=== PATIENT | female | born 1980 ===

== ENCOUNTER 2017-03-09 14:52 | Emergency (ER) | payer SELFPAY ==
[2017-03-09 15:00] VITALS: RESP 18
[2017-03-09 15:21] LABS: RBC URINE < 1 /hpf (0-3); URINE BILIRUBIN NEGATIVE (NEGATIVE); URINE BLOOD NEGATIVE (NEGATIVE); URINE COLOR Yellow (YELLOW); URINE GLUCOSE (UA) NORMAL (Normal); URINE KETONE NEGATIVE (NEGATIVE); URINE LEUKOCYTE ESTERASE NEG Leu/uL (Negative); URINE PROTEIN NEGATIVE (NEGATIVE); URINE UROBILINOGEN NORMAL mg/dL (0.2-1.0); WBC URINE < 1 /hpf (0-5)
[2017-03-09 15:46] LABS: BASO # 0.1 K/uL (0.0-0.2); BASO % 0.6 % (0.0-2.0); EOS # 0.2 K/uL (0.0-0.7); EOS % 2.3 % (0.0-4.0); HEMATOCRIT 26.8 % (34.0-47.0); LYMPH # 3.1 K/uL (1.0-4.3); LYMPH % 31.3 % (20.0-40.0); MEAN CELL VOLUME 45.7 fL (81.0-99.0); MEAN CORPUSCULAR HGB CONC 26.2 g/dL (33.0-37.0); MEAN PLATELET VOLUME 9.4 fL (7.2-11.7); MONO # 0.7 K/uL (0.0-0.8); MONO % 6.8 % (0.0-10.0); RED CELL DISTRIBUTION WIDTH 21.3 % (11.5-14.5); WHITE BLOOD COUNT 9.9 K/uL (4.8-10.8)
[2017-03-09 15:50] LABS: CHLORIDE 104 mmol/L (98-107); POTASSIUM 3.7 mmol/L (3.6-5.2); SODIUM 141 mmol/L (132-148)
[2017-03-09 15:52] LABS: BILIRUBIN,TOTAL 0.6 mg/dL (0.2-1.3); GFR AFRICAN-AMERICAN > 60
[2017-03-09 15:53] LABS: ALB/GLOB RATIO 1.3 (1.0-2.1); ALKALINE PHOSPHATASE 100 U/L (38-126); ALT/SGPT 98 U/L (9-52); AST/SGOT 61 U/L (14-36); BLOOD UREA NITROGEN 11 mg/dL (7-17); CARBON DIOXIDE 21 mmol/L (22-30); GLUCOSE,RANDOM 156 mg/dL (65-105); TOTAL PROTEIN 7.9 g/dL (6.3-8.3)
[2017-03-09 15:54] LABS: CALCIUM 9.1 mg/dl (8.6-10.4)
[2017-03-09 15:57] LABS: IRON 37 ug/dL (37-170)
--- NOTE | 2017-03-09 16:43 | C.PDOC ---
History Of Present Illness A 37 year old female was sent from [facility] due to anemia that occurred today. Patient notes she had blood labs done and was found to have hemoglobin at 7 and was told to go to the hospital. Patient reports heavy periods for a while now and is feeling fatigued lately. Patient reports no bleeding in the ED and denies rectal bleeding, stool color change, fever, chills , N/V/D, pain, or any other complaints. Time Seen by Provider: 03/09/17 15:11 Chief Complaint (Nursing): Abnormal Labs History Per: Patient History/Exam Limitations: no limitations Onset/Duration Of Symptoms: Hrs Current Symptoms Are (Timing): Still Present Severity: Mild Additional History Per: Patient Past Medical History Reviewed: Historical Data, Nursing Documentation, Vital Signs Vital Signs: Last Vital Signs Temp 98.7 F 03/09/17 18:38 Pulse 86 03/09/17 18:38 Resp 18 03/09/17 18:38 BP 121/74 03/09/17 18:38 Pulse Ox 100 03/09/17 18:38 - Medical History PMH: Anemia Family History: States: Unknown Family Hx - Social History Hx Alcohol Use: No Hx Substance Use: No - Immunization History Hx Tetanus Toxoid Vaccination: No Hx Influenza Vaccination: No Review Of Systems Except As Marked, All Systems Reviewed And Found Negative. Constitutional: Positive for: Other (Fatigue). Negative for: Fever, Chills Gastrointestinal: Negative for: Nausea, Vomiting, Diarrhea, Other (Rectal bleeding. Stool color change) Physical Exam - Physical Exam Appears: Non-toxic, No Acute Distress Skin: Warm, Dry Head: Atraumatic, Normacephalic Eye(s): bilateral: Normal Inspection Cardiovascular: Rhythm Regular, No Murmur Respiratory: Normal Breath Sounds, No Rales, No Rhonchi, No Wheezing Gastrointestinal/Abdominal: Soft, No Tenderness Neurological/Psych: Oriented x3, Normal Speech, Normal Cognition ED Course And Treatment - Laboratory Results Result Diagrams: 03/09/17 15:33 03/09/17 15:33 O2 Sat by Pulse Oximetry: 99 (Room air) Pulse Ox Interpretation: Normal Medical Decision Making Medical Decision Making: Plans: CBC Pt hgb is stable at 7 (today and few days ago) Pt has min symptoms ie fatigue, current recommendation is to minimize transfusions I discussed transfusion vs IV iron Pt agrees with plan for IV iron then PO Post infusion dc home with mvi and iron Disposition Counseled Patient/Family Regarding: Diagnosis, Need For Followup - Disposition Referrals: [facility] [Outside] Disposition: HOME/ ROUTINE Disposition Time: 18:02 Condition: GOOD Prescriptions: Ferrous Gluconate [Iron] 1 tab PO BID #60 tablet Multivitamin [Multiple Vitamins] 1 tab PO DAILY #30 tablet Instructions: Iron Supplements (By mouth), Iron Deficiency Anemia (ED) - Clinical Impression Clinical Impression: Microcytic hypochromic anemia - Scribe Statement The provider has reviewed the documentation as recorded by the Scribe Harman cr All medical record entries made by the Scribe were at my direction and personally dictated by me. I have reviewed the chart and agree that the record accurately reflects my personal performance of the history, physical exam, medical decision making, and the department course for this patient. I have also personally directed, reviewed, and agree with the discharge instructions and disposition.
[2017-03-09] MEDS ORDERED: Ferric Sodium Gluconat Complex 62.5 mg/5 ml Vial IVPB STA (16:57)
[2017-03-09 18:39] VITALS: BP 121/74; PULSE 86; TEMP 98.7
[2017-03-14 16:01] VITALS: O2SAT 99
== END 2017-03-09 18:39 | disposition home or self-care (01) ==
LOC: C.ER 14:52
DX: D50.8 Other iron deficiency anemias (principal)
CPT/HCPCS: 80053; 81001; 83540; 83550; 84703; 85025; 86850; 86900; 96365; 99283; J2916

== ENCOUNTER 2017-03-31 21:42 | Emergency (ER) | payer SELFPAY ==
[2017-03-31 22:32] VITALS: RESP 18
[2017-03-31] MEDS ORDERED: Sodium Chloride 0.9% 1,000 ML IV ONE (23:19)
--- NOTE | 2017-03-31 23:19 | C.PDOC ---
History Of Present Illness <Laith Yates - Last Filed: 04/01/17 00:45> <Luma Eduardo - Last Filed: 04/01/17 17:38> Patient is a 37 year old female with a PMHx of anemia who presents to the ER with a complaint of a fever, sore throat and vomiting that began today. Patient noted that she is baseline anemic and is on iron therapy. Patient denies sick contact, chest pain, or abdominal pain. (Laith Yates) History Per: Patient History/Exam Limitations: no limitations Onset/Duration Of Symptoms: Hrs Current Symptoms Are (Timing): Still Present Location Of Pain: None Sick Contacts (Context): None Associated Symptoms: Fever, Vomiting, Other (Sore throat) Recent travel outside of the [place]: No <Laith Yates - Last Filed: 04/01/17 00:45> <Luma Eduardo - Last Filed: 04/01/17 17:38> Time Seen by Provider: 03/31/17 23:15 Chief Complaint (Nursing): Fever Past Medical History Reviewed: Historical Data, Nursing Documentation, Vital Signs - Medical History PMH: Anemia Surgical History: No Surg Hx Family History: States: Unknown Family Hx - Social History Hx Alcohol Use: No Hx Substance Use: No - Immunization History Hx Tetanus Toxoid Vaccination: No Hx Influenza Vaccination: No <Laith Yates - Last Filed: 04/01/17 00:45> Review Of Systems Except As Marked, All Systems Reviewed And Found Negative. Constitutional: Positive for: Fever ENT: Positive for: Throat Pain Cardiovascular: Negative for: Chest Pain Gastrointestinal: Positive for: Vomiting. Negative for: Abdominal Pain <Laith Yates - Last Filed: 04/01/17 00:45> Physical Exam - Physical Exam Appears: Well, Non-toxic Skin: Normal Color, Warm, Dry Head: Atraumatic, Normacephalic Nose: Normal, No Discharge Oral Mucosa: Moist Tongue: Normal Appearing, No Erythema Throat: Erythema (Pharyngeal), Exudate (Pharyngeal) Neck: Normal, Supple Chest: Symmetrical, No Tenderness Cardiovascular: Rhythm Regular, No Murmur Respiratory: Normal Breath Sounds, No Rales, No Rhonchi, No Wheezing Gastrointestinal/Abdominal: Soft, No Tenderness Neurological/Psych: Oriented x3, Normal Speech, Normal Cognition <Laith Yatse - Last Filed: 04/01/17 00:45> ED Course And Treatment - Laboratory Results Result Diagrams: 03/31/17 23:41 03/31/17 23:41 - Radiology CXR: Interpreted by Me, Viewed By Me CXR Interpretation: Yes: No Acute Disease <Laith Yates - Last Filed: 04/01/17 00:45> - Laboratory Results Result Diagrams: 03/31/17 23:41 03/31/17 23:41 <Luma Eduardo - Last Filed: 04/01/17 17:38> Medical Decision Making <Laith Yates - Last Filed: 04/01/17 00:45> <Luma Eduardo - Last Filed: 04/01/17 17:38> Medical Decision Making: r/o strep, flu, pna - will check labs fluids, reassess Plan: * Tylenol PO * Amoxicillin PO * Zofran IVP, * Protonix IVP * IV fluids * 1245: noted h/h. improving from previous, as pt on iron. does not wish to stay in hospital for possible transfuion. noted leukocytosis, strep pos. not tachy, fever resolved. cxr neg as read by me. pt asking for discharge. well appearing, on phone, in nad. (Laith Yates) Disposition - Disposition Disposition Time: 00:45 <Laith Yates - Last Filed: 04/01/17 00:45> <Luma Eduardo - Last Filed: 04/01/17 17:38> - Disposition Referrals: Clinic,Med Surg [Primary Care Provider] - Disposition: HOME/ ROUTINE Condition: STABLE Additional Instructions: please follow up with your doctor/clinic. return to er with worsening symptoms or concerns. Prescriptions: Amoxicillin [Amoxil 500 mg Cap] 500 mg PO TID #21 cap Instructions: Strep Throat (ED) Print Language: BELIZEAN - Clinical Impression Clinical Impression: Strep pharyngitis - Scribe Statement The provider has reviewed the documentation as recorded by the Scribe <Laith Yates - Last Filed: 04/01/17 00:45> <Luma Eduardo - Last Filed: 04/01/17 17:38> - Scribe Statement Chris Grace All medical record entries made by the Scribe were at my direction and personally dictated by me. I have reviewed the chart and agree that the record accurately reflects my personal performance of the history, physical exam, medical decision making, and the department course for this patient. I have also personally directed, reviewed, and agree with the discharge instructions and disposition. (Laith Yates) Addendum <Laith Yates - Last Filed: 04/01/17 00:45> <Luma Eduardo - Last Filed: 04/01/17 17:38> Addendum: 04/01/17 17:37 call placed to patient at [phone] to f/u on her condition; no answer, not able to leave voice message. (Luma Eduardo)
[2017-03-31] MEDS ORDERED: Sodium Chloride 0.9% 1,000 ML ONE (23:25)
[2017-03-31 23:44] LABS: BASO # 0.1 K/uL (0.0-0.2); EOS # 0.1 K/uL (0.0-0.7); EOS % 0.4 % (0.0-4.0); MONO # 1.4 K/uL (0.0-0.8); NRBC % 0.1 % (0.0-2.0)
[2017-03-31 23:49] LABS: RBC URINE 10 /hpf (0-3); TRANSITIONAL EPITHIAL < 1 /hpf (0-3); URINE BACTERIA OCC (<OCC); URINE BILIRUBIN NEGATIVE (NEGATIVE); URINE BLOOD 2+ (NEGATIVE); URINE COLOR Yellow (YELLOW); URINE GLUCOSE (UA) NORMAL (Normal); URINE KETONE NEGATIVE (NEGATIVE); URINE LEUKOCYTE ESTERASE 1+ Leu/uL (Negative); URINE PROTEIN 1+ mg/dL (NEGATIVE); URINE UROBILINOGEN NORMAL mg/dL (0.2-1.0); WBC URINE 11 /hpf (0-5)
[2017-03-31 23:50] LABS: MEAN CELL VOLUME 50.2 fL (81.0-99.0)
[2017-03-31 23:53] LABS: CHLORIDE 100 mmol/L (98-107); SODIUM 135 mmol/L (132-148)
[2017-03-31 23:54] LABS: INR 1.2; POTASSIUM 3.8 mmol/L (3.6-5.2)
[2017-03-31 23:56] LABS: ALB/GLOB RATIO 1.4 (1.0-2.1); ALKALINE PHOSPHATASE 99 U/L (38-126); ALT/SGPT 74 U/L (9-52); AST/SGOT 32 U/L (14-36); BILIRUBIN,TOTAL 0.7 mg/dL (0.2-1.3); BLOOD UREA NITROGEN 9 mg/dL (7-17); CARBON DIOXIDE 21 mmol/L (22-30); GFR AFRICAN-AMERICAN > 60; GLUCOSE,RANDOM 156 mg/dL (65-105)
[2017-04-01 00:08] LABS: BASO % 0.5 % (0.0-2.0); LYMPH # 1.2 K/uL (1.0-4.3); LYMPH % 6.6 % (20.0-40.0); MEAN CORPUSCULAR HEMOGLOBIN 13.8 pg (27.0-31.0); MEAN CORPUSCULAR HGB CONC 27.4 g/dL (33.0-37.0); MEAN PLATELET VOLUME 9.6 fL (7.2-11.7); MONO % 7.4 % (0.0-10.0); PLATELET COUNT 203 K/uL (130-400); RED CELL DISTRIBUTION WIDTH 28.8 % (11.5-14.5); WHITE BLOOD COUNT 18.7 K/uL (4.8-10.8)
[2017-04-01 00:11] LABS: HEMATOCRIT 29.5 % (34.0-47.0)
[2017-04-01 00:16] VITALS: BP 116/72; PULSE 82; TEMP 99; O2SAT 99
[2017-04-01 03:31] LABS: BASOPHIL 1 % (0-2); NEUTROPHIL 93 % (50-75); TOTAL CELLS COUNTED 100
--- NOTE | 2017-04-01 08:55 | RAD ---
PROCEDURE: CHEST RADIOGRAPH, 1 VIEW HISTORY: Abdominal pain COMPARISON: None available. FINDINGS: LUNGS: Mild venous congestion. PLEURA: No pneumothorax or pleural fluid seen. CARDIOVASCULAR: Normal. OSSEOUS STRUCTURES: No significant abnormalities. VISUALIZED UPPER ABDOMEN: Normal. OTHER FINDINGS: None. IMPRESSION: Mild venous congestion.
== END 2017-04-01 00:30 | disposition home or self-care (01) ==
LOC: C.ER 21:42 → SUPCPDRO 21:42 → C.ER 04-01 00:30
DX: J02.0 Streptococcal pharyngitis (principal); B95.0 Streptococcus, group A, as the cause of diseases classified elsewhere
CPT/HCPCS: 71010; 80053; 81001; 83690; 84703; 85025; 85610; 85730; 87430; 87804; 96361; 96374; 96375; 99285; C9113; J2405; J7040

== ENCOUNTER 2019-03-12 20:06 | Observation (INO) | payer SELFPAY ==
--- NOTE | 2019-03-12 21:25 | C.PDOC ---
History Of Present Illness 39yo old F with PMH of iron deficiency anemia was sent in by [facility] when her labs showed her Hgb was 7 and she's on day 19 of a heavy period. This happened two years ago, but she did not require a transfusion at that time. She was supplemented with iron at that time. She has started to feel, dizzy, weak, and cold as her period has progressed. She states that it is heavier than usual, needing to change completely soaked pads about once every hour and notices clotting of various sizes about half the time she changes pads. Her normal periods are heavy without clots and last about 1 week. Today, she supplements with tampons to ensure she can make it to the restroom before leaking. Denies chest pain, palpitations, headaches, numbness, tingling. After the clinic contacted her, she started taking Folic Acid and Iron supplements today. <Teagan Dial - Last Filed: 03/12/19 21:55> History Per: Patient Onset/Duration Of Symptoms: Days <Teagan Dial - Last Filed: 03/12/19 21:55> <Gumaro Noland DO - Last Filed: 03/13/19 00:26> Time Seen by Provider: 03/12/19 21:06 Chief Complaint (Nursing): Abnormal Labs Past Medical History Reviewed: Historical Data, Nursing Documentation, Vital Signs Vital Signs: Last Vital Signs Temp 98 F 03/12/19 20:37 Pulse 87 03/12/19 20:37 Resp 20 03/12/19 20:37 BP 139/89 03/12/19 20:37 Pulse Ox 100 03/12/19 20:37 Primary Care Provider: Non [facility] Provider, - Medical History PMH: Anemia Family History: States: Unknown Family Hx - Social History Hx Tobacco Use: No Hx Alcohol Use: No Hx Substance Use: No - Immunization History Hx Tetanus Toxoid Vaccination: No Hx Influenza Vaccination: No <Teagan Dial - Last Filed: 03/12/19 21:55> Vital Signs: Last Vital Signs Temp 98 F 03/12/19 20:37 Pulse 87 03/12/19 20:37 Resp 20 03/12/19 20:37 BP 139/89 03/12/19 20:37 Pulse Ox 100 03/12/19 21:57 <Gumaro Noland DO - Last Filed: 03/13/19 00:26> Review Of Systems Constitutional: Positive for: Weakness. Negative for: Fever, Chills Cardiovascular: Positive for: Light Headedness. Negative for: Chest Pain, Palpitations, Edema Respiratory: Negative for: Cough, Shortness of Breath, Wheezing Gastrointestinal: Positive for: Nausea. Negative for: Vomiting, Abdominal Pain, Diarrhea, Constipation Genitourinary: Negative for: Dysuria, Frequency, Incontinence Skin: Negative for: Rash Neurological: Positive for: Weakness, Dizziness. Negative for: Numbness, Confusion, Seizures, Altered Mental Status <Teagan Dial - Last Filed: 03/12/19 21:55> Physical Exam - Physical Exam Appears: Well, No Acute Distress, Other (tearful) Skin: Dry, Pale, Other (cool to touch) Head: Atraumatic, Normacephalic Eye(s): bilateral: PERRL, EOMI, Conjunctiva Pale Oral Mucosa: Dry Cardiovascular: Rhythm Regular, No Edema Respiratory: Normal Breath Sounds, No Rales, No Rhonchi Gastrointestinal/Abdominal: Normal Exam, Bowel Sounds, Soft, No Tenderness, Distention (obese) Back: No CVA Tenderness Pelvic: Vaginal Bleeding, Vaginal Discharge, No Cervical Motion Tenderness Extremity: No Pedal Edema, No Calf Tenderness, Capillary Refill (3-4 sec) Pulses: Left Radial: Normal, Right Radial: Normal, Left Dorsalis Pedis: Normal, Right Dorsalis Pedis: Normal DTR: Knee (R): 2+, Knee (L): 2+ Neurological/Psych: Oriented x3, Normal Speech, Normal Cognition, Normal Cranial Nerves <Teagan Dial - Last Filed: 03/12/19 21:55> ED Course And Treatment - Laboratory Results Result Diagrams: 03/12/19 21:27 03/12/19 21:27 O2 Sat by Pulse Oximetry: 100 <Teagan Dial - Last Filed: 03/12/19 21:55> - Laboratory Results Result Diagrams: 03/12/19 21:27 03/12/19 21:27 Lab Results: PT 11.7 SECONDS (9.7-12.2) 03/12/19 21:27 INR 1.1 03/12/19 21:27 APTT 25.0 SECONDS (21-34) 03/12/19 21:27 Total Bilirubin 0.5 mg/dL (0.2-1.3) 03/12/19 21:27 AST 31 U/L (14-36) 03/12/19 21:27 ALT 23 U/L (9-52) 03/12/19 21:27 Alkaline Phosphatase 110 U/L (38-126) 03/12/19 21: Total Protein 8.2 g/dL (6.3-8.3) 03/12/19 21: Albumin 4.9 g/dL (3.5-5.0) 03/12/19 21: Globulin 3.4 gm/dL (2.2-3.9) 03/12/19 21: Albumin/Globulin Ratio 1.5 (1.0-2.1) 03/12/19 21:27 Urine Color Red (YELLOW) 03/12/19 22:17 Urine Clarity Hazy (Clear) 03/12/19 22:17 Urine pH 5.0 (5.0-8.0) 03/12/19 22:17 Ur Specific [place] 1.003 (1.003-1.030) 03/12/19 22:17 Urine Protein 1+ mg/dL (NEGATIVE) H 03/12/19 22:17 Urine Glucose (UA) Normal mg/dL (Normal) 03/12/19 22:17 Urine Ketones Negative mg/dL (NEGATIVE) 03/12/19 22:17 Urine Blood 3+ (NEGATIVE) H 03/12/19 22:17 Urine Nitrate Negative (NEGATIVE) 03/12/19 22:17 Urine Bilirubin Negative (NEGATIVE) 03/12/19 22:17 Urine Urobilinogen Normal mg/dL (0.2-1.0) 03/12/19 22:17 Ur Leukocyte Esterase Neg Davian/uL (Negative) 03/12/19 22:17 Urine WBC (Auto) 1 /hpf (0-5) 03/12/19 22:17 Urine RBC (Auto) 29 /hpf (0-3) H 03/12/19 22:17 Ur Squamous Epith Cells 6 /hpf (0-5) H 03/12/19 22:17 Urine Bacteria Rare (<OCC) 03/12/19 22:17 Urine HCG, Qual Negative (NEGATIVE) 03/12/19 22:17 Beta HCG, Quant < 2.39 mIU/ML 03/12/19 21:27 Urine HCG, Qual Negative (NEGATIVE) 03/12/19 22:17 <Gumaro Noland DO - Last Filed: 03/13/19 00:26> Medical Decision Making Medical Decision Making: - labs - bHCG, quantitative as pt unlikely to provide urine - UA, Upreg - type and cross. consent obtained for transfusion d/w Dr. Noland. will sign over care to him at this time. <Teagan Dial - Last Filed: 03/12/19 21:55> Medical Decision Making: Spoke with Dr. Marc SANTIAGO pellet preparation operator regarding patient, requests patient to be admitted to Medical Service and she will follow up as consult. Contacted Dr. Goff Hospitalist pellet preparation operator, patient to be admitted to his service. <Gumaro Noland DO - Last Filed: 03/13/19 00:26> Disposition - Disposition Disposition Time: 21:56 <Teagan Dial - Last Filed: 03/12/19 21:55> <Gumaro Noland DO - Last Filed: 03/13/19 00:26> - Disposition Condition: FAIR - Clinical Impression Clinical Impression: Acute anemia, Menorrhagia - PA / ANIMAL DAYCARE PROVIDER / Resident Statement VITALY has reviewed & agrees with the documentation as recorded. VITALY has examined the patient and agrees with the treatment plan. <Teagan Dial - Last Filed: 03/12/19 21:55>
[2019-03-12 21:37] LABS: BASO # 0.1 K/uL (0.0-0.2); BASO % 0.6 % (0.0-2.0); EOS # 0.2 K/uL (0.0-0.7); EOS % 1.8 % (0.0-4.0); LYMPH # 3.9 K/uL (1.0-4.3); LYMPH % 29.1 % (20.0-40.0); MEAN CORPUSCULAR HEMOGLOBIN 14.2 pg (27.0-31.0); MEAN CORPUSCULAR HGB CONC 28.4 g/dL (33.0-37.0); MEAN PLATELET VOLUME 9.1 fL (7.2-11.7); MONO # 0.8 K/uL (0.0-0.8); MONO % 6.3 % (0.0-10.0); NEUT # 8.3 K/uL (1.8-7.0); NEUT % 62.2 % (50.0-75.0); NRBC % 0.3 % (0.0-2.0); RBC 5.3 Mil/uL (3.80-5.20); RED CELL DISTRIBUTION WIDTH 19.6 % (11.5-14.5); WHITE BLOOD COUNT 13.4 K/uL (4.8-10.8)
[2019-03-12 21:38] LABS: HEMOGLOBIN 7.6 g/dL (11.0-16.0); MEAN CELL VOLUME 50.2 fL (81.0-99.0)
[2019-03-12 21:41] LABS: INR 1.1; PROTHROMBIN TIME 11.7 SECONDS (9.7-12.2)
[2019-03-12 21:45] LABS: ALB/GLOB RATIO 1.5 (1.0-2.1); ALBUMIN 4.9 g/dL (3.5-5.0); ALT/SGPT 23 U/L (9-52); AST/SGOT 31 U/L (14-36); BLOOD UREA NITROGEN 9 mg/dL (7-17); CALCIUM 9.3 mg/dl (8.6-10.4); GFR NON-AFRICAN AMERICAN > 60
[2019-03-12 22:31] LABS: SQUAMOUS EPITHIAL 6 /hpf (0-5); URINE BACTERIA RARE (<OCC); URINE BILIRUBIN NEGATIVE (NEGATIVE); URINE BLOOD 3+ (NEGATIVE); URINE CLARITY Hazy (Clear); URINE COLOR Red (YELLOW); URINE GLUCOSE (UA) NORMAL (Normal); URINE LEUKOCYTE ESTERASE NEG Leu/uL (Negative); URINE PROTEIN 1+ mg/dL (NEGATIVE); URINE UROBILINOGEN NORMAL mg/dL (0.2-1.0)
[2019-03-12 22:33] LABS: HCG,QUALITATIVE URINE NEGATIVE (NEGATIVE)
--- NOTE | 2019-03-12 23:03 | CP.PCM.HP ---
"<Gumaro Noland DO - Last Filed: 03/13/19 00:07> Meds Allergies/Adverse Reactions: Allergies Allergy/AdvReac Type Severity Reaction Status Date / Time No Known Allergies Allergy Verified 03/12/19 20:46 Results - Vital Signs Recent Vital Signs: Last Vital Signs Temp 98 F 03/12/19 20:37 Pulse 87 03/12/19 20:37 Resp 20 03/12/19 20:37 BP 139/89 03/12/19 20:37 Pulse Ox 100 03/12/19 21:57 - Labs Result Diagrams: 03/12/19 21:27 03/12/19 21:27 Labs: Laboratory Results - last 24 hr 03/12/19 03/12/19 03/12/19 21:27 21:27 21:27 WBC 13.4 H RBC 5.30 H Hgb 7.6 L Hct 25.8 L MCV 50.2 L MCH 14.2 L MCHC 28.4 L RDW 19.6 H Plt Count 279 MPV 9.1 Neut % (Auto) 62.2 Lymph % (Auto) 29.1 [place] % (Auto) 6.3 Eos % (Auto) 1.8 Baso % (Auto) 0.6 Neut # (Auto) 8.3 H Lymph # (Auto) 3.9 [place] # (Auto) 0.8 Eos # (Auto) 0.2 Baso # (Auto) 0.1 PT 11.7 INR 1.1 APTT 25.0 Sodium 141 Potassium 3.7 Chloride 102 Carbon Dioxide 22 Anion Gap 20 BUN 9 Creatinine 0.7 Est GFR ( Amer) > 60 Est GFR (Non-Af Amer) > 60 Random Glucose 111 H D Calcium 9.3 Total Bilirubin 0.5 AST 31 ALT 23 Alkaline Phosphatase 110 Total Protein 8.2 Albumin 4.9 Globulin 3.4 Albumin/Globulin Ratio 1.5 Beta HCG, Quant Urine Color Urine Clarity Urine pH Ur Specific [place] Urine Protein Urine Glucose (UA) Urine Ketones Urine Blood Urine Nitrate Urine Bilirubin Urine Urobilinogen Ur Leukocyte Esterase Urine WBC (Auto) Urine RBC (Auto) Ur Squamous Epith Cells Urine Bacteria Urine HCG, Qual 03/12/19 03/12/19 21:27 22:17 WBC RBC Hgb Hct MCV MCH MCHC RDW Plt Count MPV Neut % (Auto) Lymph % (Auto) [place] % (Auto) Eos % (Auto) Baso % (Auto) Neut # (Auto) Lymph # (Auto) [place] # (Auto) Eos # (Auto) Baso # (Auto) PT INR APTT Sodium Potassium Chloride Carbon Dioxide Anion Gap BUN Creatinine Est GFR ( Amer) Est GFR (Non-Af Amer) Random Glucose Calcium Total Bilirubin AST ALT Alkaline Phosphatase Total Protein Albumin Globulin Albumin/Globulin Ratio Beta HCG, Quant < 2.39 Urine Color Red Urine Clarity Hazy Urine pH 5.0 Ur Specific [place] 1.003 Urine Protein 1+ H Urine Glucose (UA) Normal Urine Ketones Negative Urine Blood 3+ H Urine Nitrate Negative Urine Bilirubin Negative Urine Urobilinogen Normal Ur Leukocyte Esterase Neg Urine WBC (Auto) 1 Urine RBC (Auto) 29 H Ur Squamous Epith Cells 6 H Urine Bacteria Rare Urine HCG, Qual Negative <Abel Jones - Last Filed: 03/13/19 05:59> History of Present Illness - History of Present Illness History of Present Illness: 39yo old female with a past medical history of iron deficiency anemia and thalassemia minor was sent in by [facility] when her labs showed her Hgb was 7 and she's on day 19 of a heavy period. She reports bright red blood associated with maroon clots that come and go throughout the day. Patient states she has to change her pads every hour on the hour throughout the day. Similar symptoms occurred two years ago, however no transfusion was done at that time and started on PO iron instead. She reports feeling dizzy and weak throughout the day. Her baseline periods she states are usually heavy as well with clots and last about one week in length. Her normal periods are heavy wit hout clots and last about 1 week. Today was her first day of taking PO Iron and Folic acid supplementation at the recommendation of her Physician at the clinic. Patient denies any chest pain, palpitations, headaches, numbness, tingling, syncopal episodes, changes in vision, or any other complaints. PMD: Cant recall name, but located at [facility] Medical history: iron def anemia, pre-diabetes, thalassemia minor Allergies: Denies Medications: Ferrous Sulfate 325mg PO DAILY Surgeries: 2 C-sections Social History: Lives in [place] with and children. Currently unemployed. Denies alcohol or tobacco abuse. Denies illicit drug use. Present on Admission - Present on Admission Any Indicators Present on Admission: No Review of Systems - Constitutional Constitutional: Fatigue. absent: Chills, Daytime Sleepiness, Excessive Sweating, Lethargy, Malaise, Sleep Apnea - EENT Eyes: absent: Decreased Night Vision, Loss of Peripheral Vision, Pain, Photophobia, Tunnel Vision Ears: absent: Ear Pain Nose/Mouth/Throat: absent: Nasal Discharge, Nasal Obstruction, Mouth Pain - Cardiovascular Cardiovascular: Lightheadedness. absent: Chest Pain, Chest Pain at Rest, Orthopnea, Palpitations, Syncope - Respiratory Respiratory: Cough. absent: Hemoptysis, Dyspnea on Exertion, Excessive Mucous Production - Gastrointestinal Gastrointestinal: Constipation. absent: Bloating, Diarrhea, Dyspepsia, Hematochezia - Musculoskeletal Musculoskeletal: absent: Atrophy, Back Pain, Myalgias, Neck Pain - Integumentary Integumentary: absent: Bleeding Lesions, Furuncle, Skin Pain, Skin Ulcer - Neurological Neurological: Weakness. absent: Dizziness, Vertigo - Psychiatric Psychiatric: absent: Memory Loss, Mood Swings, Panic Attacks - Hematologic/Lymphatic Hematologic: absent: Easy Bleeding, Easy Bruising, Lymphadenopathy Past Patient History - Infectious Disease Hx of Infectious Diseases: None - Past Social History Smoking Status: Never Smoked - HEMATOLOGICAL/ONCOLOGICAL Hx Anemia: Yes - PSYCHIATRIC Hx Substance Use: No - SURGICAL HISTORY Hx Section: Yes (X2) - ANESTHESIA Hx Anesthesia: Yes Physical Exam - Head Exam Head Exam: ATRAUMATIC, NORMAL INSPECTION, NORMOCEPHALIC - Eye Exam Eye Exam: EOMI, Normal appearance, PERRL Pupil Exam: NORMAL ACCOMODATION, PERRL - ENT Exam ENT Exam: Mucous Membranes Moist, Normal Exam - Neck Exam Neck exam: Positive for: Normal Inspection. Negative for: Tenderness - Respiratory Exam Respiratory Exam: Clear to Auscultation Bilateral, NORMAL BREATHING PATTERN - Cardiovascular Exam Cardiovascular Exam: REGULAR RHYTHM, +S1, +S2. 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 - Neurological Exam Neurological exam: Alert, CN II-XII Intact, Oriented x3 - Psychiatric Exam Psychiatric exam: Normal Affect, Normal Mood - Skin Skin Exam: Dry, Intact, Normal Color Results - Vital Signs Recent Vital Signs: Last Vital Signs Temp 98 F 03/12/19 20:37 Pulse 87 03/12/19 20:37 Resp 20 03/12/19 20:37 BP 139/89 03/12/19 20:37 Pulse Ox 100 03/12/19 21:57 - Labs Result Diagrams: 03/12/19 21:27 03/12/19 21:27 Labs: Laboratory Results - last 24 hr 03/12/19 03/12/19 03/12/19 21:27 21:27 21:27 WBC 13.4 H RBC 5.30 H Hgb 7.6 L Hct 25.8 L MCV 50.2 L MCH 14.2 L MCHC 28.4 L RDW 19.6 H Plt Count 279 MPV 9.1 Neut % (Auto) 62.2 Lymph % (Auto) 29.1 [place] % (Auto) 6.3 Eos % (Auto) 1.8 Baso % (Auto) 0.6 Neut # (Auto) 8.3 H Lymph # (Auto) 3.9 [place] # (Auto) 0.8 Eos # (Auto) 0.2 Baso # (Auto) 0.1 PT 11.7 INR 1.1 APTT 25.0 Sodium 141 Potassium 3.7 Chloride 102 Carbon Dioxide 22 Anion Gap 20 BUN 9 Creatinine 0.7 Est GFR ( Amer) > 60 Est GFR (Non-Af Amer) > 60 Random Glucose 111 H D Calcium 9.3 Total Bilirubin 0.5 AST 31 ALT 23 Alkaline Phosphatase 110 Total Protein 8.2 Albumin 4.9 Globulin 3.4 Albumin/Globulin Ratio 1.5 Beta HCG, Quant Urine Color Urine Clarity Urine pH Ur Specific [place] Urine Protein Urine Glucose (UA) Urine Ketones Urine Blood Urine Nitrate Urine Bilirubin Urine Urobilinogen Ur Leukocyte Esterase Urine WBC (Auto) Urine RBC (Auto) Ur Squamous Epith Cells Urine Bacteria Urine HCG, Qual 03/12/19 03/12/19 21:27 22:17 WBC RBC Hgb Hct MCV MCH MCHC RDW Plt Count MPV Neut % (Auto) Lymph % (Auto) [place] % (Auto) Eos % (Auto) Baso % (Auto) Neut # (Auto) Lymph # (Auto) [place] # (Auto) Eos # (Auto) Baso # (Auto) PT INR APTT Sodium Potassium Chloride Carbon Dioxide Anion Gap BUN Creatinine Est GFR ( Amer) Est GFR (Non-Af Amer) Random Glucose Calcium Total Bilirubin AST ALT Alkaline Phosphatase Total Protein Albumin Globulin Albumin/Globulin Ratio Beta HCG, Quant < 2.39 Urine Color Red Urine Clarity Hazy Urine pH 5.0 Ur Specific [place] 1.003 Urine Protein 1+ H Urine Glucose (UA) Normal Urine Ketones Negative Urine Blood 3+ H Urine Nitrate Negative Urine Bilirubin Negative Urine Urobilinogen Normal Ur Leukocyte Esterase Neg Urine WBC (Auto) 1 Urine RBC (Auto) 29 H Ur Squamous Epith Cells 6 H Urine Bacteria Rare Urine HCG, Qual Negative Assessment & Plan - Assessment and Plan (Free Text) Assessment: 39yo old female with a past medical history of iron deficiency anemia and thalassemia minor was sent in by [facility] when her labs showed her Hgb was 7 and she's on day 19 of a heavy period. Plan: 1.Menorrhagia? Previous episode 2 years ago and was supplemented with PO Iron Hgb on admssion 7.1 Hemdynamically stable on admission Transfuse 2 units PRBC today LMP February 21. [id number]|Negative Transvaginal u/s ordered. Will f/u with results. 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 Padgett--> Help appreciated Repeat CBC in the A.M. Medications: Ferrous Sulfate 325mg PO DAILY 2. hx of Fe Def Anemia -Iron studies ordered. Will f/u with results. -Continue Ferrous Sulfate 325mg PO DAILY 3. hx of Pre Diabetes -Hemglobin A1C ordered .Will f/u with results. PPX -Protonix -DVT CI 2/2 to Drop in Hgb | SCD's Plan discussed with Attending Dr. Goff. Abel Jones, PGY-2 <Juan Carlos Goff - Last Filed: 03/13/19 06:25> Results - Vital Signs Recent Vital Signs: Last Vital Signs Temp 98.6 F 03/13/19 06:12 Pulse 77 03/13/19 06:12 Resp 20 03/13/19 06:12 BP 106/65 03/13/19 06:12 Pulse Ox 98 03/13/19 01:15 - Labs Result Diagrams: 03/12/19 21:27 03/12/19 21:27 Labs: Laboratory Results - last 24 hr 03/12/19 03/12/19 03/12/19 21:27 21:27 21:27 WBC 13.4 H RBC 5.30 H Hgb 7.6 L Hct 25.8 L MCV 50.2 L MCH 14.2 L MCHC 28.4 L RDW 19.6 H Plt Count 279 MPV 9.1 Neut % (Auto) 62.2 Lymph % (Auto) 29.1 [place] % (Auto) 6.3 Eos % (Auto) 1.8 Baso % (Auto) 0.6 Neut # (Auto) 8.3 H Lymph # (Auto) 3.9 [place] # (Auto) 0.8 Eos # (Auto) 0.2 Baso # (Auto) 0.1 PT 11.7 INR 1.1 APTT 25.0 Sodium 141 Potassium 3.7 Chloride 102 Carbon Dioxide 22 Anion Gap 20 BUN 9 Creatinine 0.7 Est GFR ( Amer) > 60 Est GFR (Non-Af Amer) > 60 Random Glucose 111 H D Calcium 9.3 Iron TIBC % Saturation Ferritin Total Bilirubin 0.5 AST 31 ALT 23 Alkaline Phosphatase 110 Total Protein 8.2 Albumin 4.9 Globulin 3.4 Albumin/Globulin Ratio 1.5 Vitamin B12 Folate Beta HCG, Quant Urine Color Urine Clarity Urine pH Ur Specific [place] Urine Protein Urine Glucose (UA) Urine Ketones Urine Blood Urine Nitrate Urine Bilirubin Urine Urobilinogen Ur Leukocyte Esterase Urine WBC (Auto) Urine RBC (Auto) Ur Squamous Epith Cells Urine Bacteria Urine HCG, Qual Blood Type Antibody Screen 03/12/19 03/12/19 03/12/19 21:27 22:17 23:44 WBC RBC Hgb Hct MCV MCH MCHC RDW Plt Count MPV Neut % (Auto) Lymph % (Auto) [place] % (Auto) Eos % (Auto) Baso % (Auto) Neut # (Auto) Lymph # (Auto) [place] # (Auto) Eos # (Auto) Baso # (Auto) PT INR APTT Sodium Potassium Chloride Carbon Dioxide Anion Gap BUN Creatinine Est GFR ( Amer) Est GFR (Non-Af Amer) Random Glucose Calcium Iron TIBC % Saturation Ferritin Total Bilirubin AST ALT Alkaline Phosphatase Total Protein Albumin Globulin Albumin/Globulin Ratio Vitamin B12 Folate Beta HCG, Quant < 2.39 Urine Color Red Urine Clarity Hazy Urine pH 5.0 Ur Specific [place] 1.003 Urine Protein 1+ H Urine Glucose (UA) Normal Urine Ketones Negative Urine Blood 3+ H Urine Nitrate Negative Urine Bilirubin Negative Urine Urobilinogen Normal Ur Leukocyte Esterase Neg Urine WBC (Auto) 1 Urine RBC (Auto) 29 H Ur Squamous Epith Cells 6 H Urine Bacteria Rare Urine HCG, Qual Negative Blood Type O POSITIVE Antibody Screen Negative 03/13/19 03/13/19 00:31 00:31 WBC RBC Hgb Hct MCV MCH MCHC RDW Plt Count MPV Neut % (Auto) Lymph % (Auto) [place] % (Auto) Eos % (Auto) Baso % (Auto) Neut # (Auto) Lymph # (Auto) [place] # (Auto) Eos # (Auto) Baso # (Auto) PT INR APTT Sodium Potassium Chloride Carbon Dioxide Anion Gap BUN Creatinine Est GFR ( Amer) Est GFR (Non-Af Amer) Random Glucose Calcium Iron 36 L TIBC 482 H % Saturation 7 L Ferritin 5.4 Total Bilirubin AST ALT Alkaline Phosphatase Total Protein Albumin Globulin Albumin/Globulin Ratio Vitamin B12 296 Folate > 20.0 Beta HCG, Quant Urine Color Urine Clarity Urine pH Ur Specific [place] Urine Protein Urine Glucose (UA) Urine Ketones Urine Blood Urine Nitrate Urine Bilirubin Urine Urobilinogen Ur Leukocyte Esterase Urine WBC (Auto) Urine RBC (Auto) Ur Squamous Epith Cells Urine Bacteria Urine HCG, Qual Blood Type Antibody Screen Assessment & Plan - Date & Time Date: 03/13/19 (I have seen and examined the patient. I agree with the findings and plan of care as documented by Dr. Perez. Patient with menorrhagia and subsequent acute anemia. History of prior iron deficient anemia. Transfuse PRBCs as necessary. Iron panel. Consult to physician gynecologist. Monitor for acute changes.) Time: 06:24 Attending/Attestation - Attestation I have personally seen and examined this patient.: Yes I have fully participated in the care of the patient.: Yes I have reviewed all pertinent clinical information: Yes"
[2019-03-13 01:39] LABS: IRON 36 ug/dL (37-170)
[2019-03-13 01:47] LABS: % IRON SATURATION 7 (20-55); TOTAL IRON BINDING CAPACITY 482 ug/dL (250-450)
[2019-03-13 02:09] LABS: FERRITIN 5.4 ng/mL
[2019-03-13 02:25] VITALS: O2SAT 98
[2019-03-13 02:40] LABS: FOLATE > 20.0 ng/mL
[2019-03-13 09:28] VITALS: BP 104/61; PULSE 83; RESP 16; TEMP 98.1
--- NOTE | 2019-03-13 10:51 | CP.PCM.CON ---
History of Present Illness - History of Present Illness History of Present Illness: Phani Gómez DO PGY1 - OBGYN Consult Note CC: Low Hb Consult Reason: Vaginal Bleeding Patient is a 39 F past medical history of iron deficiency anemia and thalassemia minor admitted for low hemoglobin Sent in by [facility] after hb was noted to be 7. Patient reported her FDLMP was on 02/21 and she has been having continuous bleeding since onset at that time. Patient reports she has been having some associated passage of clots however denies any abdominal pain, cramping, fevers, chills, n/v/d/c. 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: Reports periods typically occur at regular intervals and consistent length Review of Systems - Review of Systems All systems: reviewed and no additional remarkable complaints except Review of Systems: as per HPI Past Patient History - Infectious Disease Hx of Infectious Diseases: None - Past Social History Smoking Status: Never Smoked - HEMATOLOGICAL/ONCOLOGICAL Hx Anemia: Yes - PSYCHIATRIC Hx Substance Use: No - SURGICAL HISTORY Hx Section: Yes (X2) - ANESTHESIA Hx Anesthesia: Yes Meds Allergies/Adverse Reactions: Allergies Allergy/AdvReac Type Severity Reaction Status Date / Time No Known Allergies Allergy Verified 03/12/19 20:46 - Medications Medications: Current Medications Acetaminophen (Tylenol 325mg Tab) 650 mg PO Q6 PRN PRN Reason: Pain, moderate (4-7) Ferrous Sulfate (Feosol) 325 mg PO DAILY [facility] Last Admin: 03/13/19 10:06 Dose: 325 mg Ondansetron HCl (Zofran Inj) 4 mg IVP Q6 PRN PRN Reason: Nausea/Vomiting Pantoprazole Sodium (Protonix Inj) 40 mg IVP DAILY [facility] Last Admin: 03/13/19 10:02 Dose: 40 mg Physical Exam - Constitutional Appears: Well, Non-toxic, No Acute Distress - Head Exam Head Exam: ATRAUMATIC, NORMOCEPHALIC - Eye Exam Eye Exam: Normal appearance - ENT Exam ENT Exam: Normal Exam - Respiratory Exam Respiratory Exam: Clear to Auscultation Bilateral, NORMAL BREATHING PATTERN - Cardiovascular Exam Cardiovascular Exam: RRR. absent: Systolic Murmur - GI/Abdominal Exam GI & Abdominal Exam: Soft. absent: Tenderness - Exam Additional comments: Vaginal examination performed by Dr. Becerril; Upon evaluation no bleeding, clots appreciated; vaginal mucosa pink; no external lesion, tenderness appreciated, No discharge appreciated. - Psychiatric Exam Psychiatric exam: Normal Affect, Normal Mood - Skin Skin Exam: Dry, Intact, Normal Color, Warm Results - Vital Signs Recent Vital Signs: Last Vital Signs Temp 98.1 F 03/13/19 09:27 Pulse 83 03/13/19 09:27 Resp 16 03/13/19 09:27 BP 104/61 03/13/19 09:27 Pulse Ox 98 03/13/19 01:15 - Labs Result Diagrams: 03/12/19 21:27 03/12/19 21:27 Labs: Laboratory Results - last 24 hr 03/12/19 03/12/19 03/12/19 21:27 21:27 21:27 WBC 13.4 H RBC 5.30 H Hgb 7.6 L Hct 25.8 L MCV 50.2 L MCH 14.2 L MCHC 28.4 L RDW 19.6 H Plt Count 279 MPV 9.1 Neut % (Auto) 62.2 Lymph % (Auto) 29.1 [place] % (Auto) 6.3 Eos % (Auto) 1.8 Baso % (Auto) 0.6 Neut # (Auto) 8.3 H Lymph # (Auto) 3.9 [place] # (Auto) 0.8 Eos # (Auto) 0.2 Baso # (Auto) 0.1 PT 11.7 INR 1.1 APTT 25.0 Sodium 141 Potassium 3.7 Chloride 102 Carbon Dioxide 22 Anion Gap 20 BUN 9 Creatinine 0.7 Est GFR ( Amer) > 60 Est GFR (Non-Af Amer) > 60 Random Glucose 111 H D Calcium 9.3 Iron TIBC % Saturation Ferritin Total Bilirubin 0.5 AST 31 ALT 23 Alkaline Phosphatase 110 Total Protein 8.2 Albumin 4.9 Globulin 3.4 Albumin/Globulin Ratio 1.5 Vitamin B12 Folate Beta HCG, Quant Urine Color Urine Clarity Urine pH Ur Specific [place] Urine Protein Urine Glucose (UA) Urine Ketones Urine Blood Urine Nitrate Urine Bilirubin Urine Urobilinogen Ur Leukocyte Esterase Urine WBC (Auto) Urine RBC (Auto) Ur Squamous Epith Cells Urine Bacteria Urine HCG, Qual Blood Type Antibody Screen 03/12/19 03/12/19 03/12/19 21:27 22:17 23:44 WBC RBC Hgb Hct MCV MCH MCHC RDW Plt Count MPV Neut % (Auto) Lymph % (Auto) [place] % (Auto) Eos % (Auto) Baso % (Auto) Neut # (Auto) Lymph # (Auto) [place] # (Auto) Eos # (Auto) Baso # (Auto) PT INR APTT Sodium Potassium Chloride Carbon Dioxide Anion Gap BUN Creatinine Est GFR ( Amer) Est GFR (Non-Af Amer) Random Glucose Calcium Iron TIBC % Saturation Ferritin Total Bilirubin AST ALT Alkaline Phosphatase Total Protein Albumin Globulin Albumin/Globulin Ratio Vitamin B12 Folate Beta HCG, Quant < 2.39 Urine Color Red Urine Clarity Hazy Urine pH 5.0 Ur Specific [place] 1.003 Urine Protein 1+ H Urine Glucose (UA) Normal Urine Ketones Negative Urine Blood 3+ H Urine Nitrate Negative Urine Bilirubin Negative Urine Urobilinogen Normal Ur Leukocyte Esterase Neg Urine WBC (Auto) 1 Urine RBC (Auto) 29 H Ur Squamous Epith Cells 6 H Urine Bacteria Rare Urine HCG, Qual Negative Blood Type O POSITIVE Antibody Screen Negative 03/13/19 03/13/19 00:31 00:31 WBC RBC Hgb Hct MCV MCH MCHC RDW Plt Count MPV Neut % (Auto) Lymph % (Auto) [place] % (Auto) Eos % (Auto) Baso % (Auto) Neut # (Auto) Lymph # (Auto) [place] # (Auto) Eos # (Auto) Baso # (Auto) PT INR APTT Sodium Potassium Chloride Carbon Dioxide Anion Gap BUN Creatinine Est GFR ( Amer) Est GFR (Non-Af Amer) Random Glucose Calcium Iron 36 L TIBC 482 H % Saturation 7 L Ferritin 5.4 Total Bilirubin AST ALT Alkaline Phosphatase Total Protein Albumin Globulin Albumin/Globulin Ratio Vitamin B12 296 Folate > 20.0 Beta HCG, Quant Urine Color Urine Clarity Urine pH Ur Specific [place] Urine Protein Urine Glucose (UA) Urine Ketones Urine Blood Urine Nitrate Urine Bilirubin Urine Urobilinogen Ur Leukocyte Esterase Urine WBC (Auto) Urine RBC (Auto) Ur Squamous Epith Cells Urine Bacteria Urine HCG, Qual Blood Type Antibody Screen Assessment & Plan - Assessment and Plan (Free Text) Assessment: Vaginal Bleeding: BHCG negative Can start Provera 10mg BID x21 days total 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 Becerril Thank you for this interesting consult, will sign off at this time. Please Rec onsult as necessary. Phani Gómez DO PGY1
[2019-03-13 12:14] LABS: BASO # 0.1 K/uL (0.0-0.2)
[2019-03-13 12:35] LABS: EOS # 0.4 K/uL (0.0-0.7); EOS % 3.3 % (0.0-4.0); LYMPH # 2.7 K/uL (1.0-4.3); LYMPH % 23.4 % (20.0-40.0); MEAN CORPUSCULAR HEMOGLOBIN 16.4 pg (27.0-31.0); MEAN CORPUSCULAR HGB CONC 29.5 g/dL (33.0-37.0); MEAN PLATELET VOLUME 9.6 fL (7.2-11.7); MONO # 1.3 K/uL (0.0-0.8); MONO % 11.2 % (0.0-10.0); NEUT # 7.2 K/uL (1.8-7.0); NEUT % 61.1 % (50.0-75.0); NRBC % 0.4 % (0.0-2.0); RBC 5.44 Mil/uL (3.80-5.20); RED CELL DISTRIBUTION WIDTH 19.8 % (11.5-14.5); WHITE BLOOD COUNT 11.7 K/uL (4.8-10.8)
[2019-03-13 12:40] LABS: ALBUMIN 4.4 g/dL (3.5-5.0); ALT/SGPT 24 U/L (9-52); AST/SGOT 22 U/L (14-36); BLOOD UREA NITROGEN 9 mg/dL (7-17); CALCIUM 9.4 mg/dl (8.6-10.4); GFR NON-AFRICAN AMERICAN > 60; MEAN CELL VOLUME 55.8 fL (81.0-99.0)
--- NOTE | 2019-03-13 13:25 | CP.PCM.DIS ---
Provider - Provider Date of Admission: 03/12/19 23:22 Attending physician: Larry Gómez MD Primary care physician: previously seen at [facility] Consults: 03/12/19 23:48 Physician Consult Routine Comment: Consulting Provider: Haseeb Padgett Consulting Physician: Haseeb Padgett Reason for Consult: vaginal bleeding x 19 days Time Spent in preparation of Discharge (in minutes): 45 Diagnosis - Discharge Diagnosis (1) Acute anemia Status: Acute Priority: High (2) Menorrhagia Status: Acute Priority: High Hospital Course - Lab Results Lab Results: Most Recent Lab Values WBC 11.7 K/uL (4.8-10.8) H 03/13/19 12:00 RBC 5.44 Mil/uL (3.80-5.20) H 03/13/19 12:00 Hgb 9.0 g/dL (11.0-16.0) L 03/13/19 12:00 Hct 30.4 % (34.0-47.0) L 03/13/19 12:00 MCV 55.8 fL (81.0-99.0) L D 03/13/19 12:00 MCH 16.4 pg (27.0-31.0) L 03/13/19 12:00 MCHC 29.5 g/dL (33.0-37.0) L 03/13/19 12:00 RDW 19.8 % (11.5-14.5) H 03/13/19 12:00 Plt Count 303 K/uL (130-400) 03/13/19 12:00 MPV 9.6 fL (7.2-11.7) 03/13/19 12:00 Neut % (Auto) 61.1 % (50.0-75.0) 03/13/19 12:00 Lymph % (Auto) 23.4 % (20.0-40.0) 03/13/19 12:00 [place] % (Auto) 11.2 % (0.0-10.0) H 03/13/19 12:00 Eos % (Auto) 3.3 % (0.0-4.0) 03/13/19 12:00 Baso % (Auto) 1.0 % (0.0-2.0) 03/13/19 12:00 Neut # (Auto) 7.2 K/uL (1.8-7.0) H 03/13/19 12:00 Lymph # (Auto) 2.7 K/uL (1.0-4.3) 03/13/19 12:00 [place] # (Auto) 1.3 K/uL (0.0-0.8) H 03/13/19 12:00 Eos # (Auto) 0.4 K/uL (0.0-0.7) 03/13/19 12:00 Baso # (Auto) 0.1 K/uL (0.0-0.2) 03/13/19 12:00 PT 11.7 SECONDS (9.7-12.2) 03/12/19 21:27 INR 1.1 03/12/19 21:27 APTT 25.0 SECONDS (21-34) 03/12/19 21:27 Sodium 138 mmol/L (132-148) 03/13/19 12:00 Potassium 3.6 mmol/L (3.6-5.2) 03/13/19 12:00 Chloride 101 mmol/L (98-107) 03/13/19 12:00 Carbon Dioxide 27 mmol/L (22-30) 03/13/19 12:00 Anion Gap 14 (10-20) 03/13/19 12:00 BUN 9 mg/dL (7-17) 03/13/19 12:00 Creatinine 0.7 mg/dL (0.7-1.2) 03/13/19 12:00 Est GFR ( Amer) > 60 03/13/19 12:00 Est GFR (Non-Af Amer) > 60 03/13/19 12:00 Random Glucose 92 mg/dL (65-105) 03/13/19 12:00 Hemoglobin A1c 6.0 % (4.2-6.5) 03/13/19 12:00 Calcium 9.4 mg/dl (8.6-10.4) 03/13/19 12:00 Phosphorus 2.9 mg/dL (2.5-4.5) 03/13/19 12:00 Iron 36 ug/dL (37-170) L 03/13/19 00:31 TIBC 482 ug/dL (250-450) H 03/13/19 00:31 % Saturation 7 (20-55) L 03/13/19 00:31 Ferritin 5.4 ng/mL 03/13/19 00:31 Total Bilirubin 1.3 mg/dL (0.2-1.3) 03/13/19 12:00 AST 22 U/L (14-36) 03/13/19 12:00 ALT 24 U/L (9-52) 03/13/19 12:00 Alkaline Phosphatase 91 U/L (38-126) 03/13/19 12:00 Total Protein 8.1 g/dL (6.3-8.3) 03/13/19 12:00 Albumin 4.4 g/dL (3.5-5.0) 03/13/19 12:00 Globulin 3.4 gm/dL (2.2-3.9) 03/12/19 21:27 Albumin/Globulin Ratio 1.5 (1.0-2.1) 03/12/19 21:27 Vitamin B12 296 pg/mL (239-931) 03/13/19 00:31 Folate > 20.0 ng/mL 03/13/19 00:31 Beta HCG, Quant < 2.39 mIU/ML 03/12/19 21:27 Urine Color Red (YELLOW) 03/12/19 22:17 Urine Clarity Hazy (Clear) 03/12/19 22:17 Urine pH 5.0 (5.0-8.0) 03/12/19 22:17 Ur Specific [place] 1.003 (1.003-1.030) 03/12/19 22:17 Urine Protein 1+ mg/dL (NEGATIVE) H 03/12/19 22:17 Urine Glucose (UA) Normal mg/dL (Normal) 03/12/19 22:17 Urine Ketones Negative mg/dL (NEGATIVE) 03/12/19 22:17 Urine Blood 3+ (NEGATIVE) H 03/12/19 22:17 Urine Nitrate Negative (NEGATIVE) 03/12/19 22:17 Urine Bilirubin Negative (NEGATIVE) 03/12/19 22:17 Urine Urobilinogen Normal mg/dL (0.2-1.0) 03/12/19 22:17 Ur Leukocyte Esterase Neg Davian/uL (Negative) 03/12/19 22:17 Urine WBC (Auto) 1 /hpf (0-5) 03/12/19 22:17 Urine RBC (Auto) 29 /hpf (0-3) H 03/12/19 22:17 Ur Squamous Epith Cells 6 /hpf (0-5) H 03/12/19 22:17 Urine Bacteria Rare (<OCC) 03/12/19 22:17 Urine HCG, Qual Negative (NEGATIVE) 03/12/19 22:17 Blood Type O POSITIVE 03/12/19 23:44 Antibody Screen Negative 03/12/19 23:44 - Hospital Course Hospital Course: 39 yo old female with a past medical history of iron deficiency anemia and thalassemia minor was sent in by [facility] when her labs showed her Hgb was 7 and she's on day 19 of a heavy period. She reports bright red blood associated with maroon clots that come and go throughout the day. Patient states she has to change her pads every hour on the hour throughout the day. Similar symptoms occurred two years ago, however no transfusion was done at that time and started on PO iron instead. She reports feeling dizzy and weak throughout the day. Her baseline periods she states are usually heavy as well with clots and last about one week in length. Her normal periods are heavy without clots and last about 1 week. Today was her first day of taking PO Iron and Folic acid supplementation at the recommendation of her Physician at the clinic. Patient denies any chest pain, palpitations, headaches, numbness, tingling, syncopal episodes, changes in vision, or any other complaints. Patient was admitted for acute anemia. She received 2 units of pRBC. Her Hgb improved from 7.6 to 9. She was continued on oral iron. She was seen by OBGYN who started Provera for 21 days. Transvaginal US was done. OBGYN recommended outpatient follow-up and likely patient will need to be started on OCPs. Upon discharge, patient was still bleeding, but she said it was improved. Her vitals were stable. She was able to ambulate independently. She was given i nformation about the clinic and will follow-up as an outpatient. Discharge Exam - Head Exam Head Exam: ATRAUMATIC, NORMOCEPHALIC - Eye Exam Eye Exam: EOMI, Normal appearance - ENT Exam ENT Exam: Mucous Membranes Moist - Respiratory Exam Respiratory Exam: Clear to PA & Lateral, NORMAL BREATHING PATTERN, UNREMARKABLE - Cardiovascular Exam Cardiovascular Exam: RRR, +S1, +S2. absent: Tachycardia - GI/Abdominal Exam GI & Abdominal Exam: Soft, Unremarkable. absent: Distended, Tenderness - Extremities Exam Extremities exam: normal inspection, pedal pulses present - Back Exam Back exam: NORMAL INSPECTION - Neurological Exam Neurological exam: Alert, CN II-XII Intact, Normal Gait, Oriented x3 - Psychiatric Exam Psychiatric exam: Normal Affect, Normal Mood - Skin Skin Exam: Dry, Normal Color, Warm Additional comments: no pallor Discharge Plan - Discharge Medications Prescriptions: MedroxyPROGESTERone [Provera] 10 mg PO BID #42 tab - Follow Up Plan Condition: IMPROVED Disposition: HOME/ ROUTINE Patient education suggested?: Yes Instructions: Heart Healthy Diet, Medroxyprogesterone, Normocytic Normochromic Anemia (DC) Additional Instructions: Establish care at the [facility] at [facility] within 1 week of discharge. They will serve as your primary care provider. 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 They will also go over your ultrasound results. Call [phone] to schedule an appointment. Continue taking iron (ferrous sulfate) 325 mg daily. Additionally, you will be given a prescription for Provera 10 mg twice daily. Take this for a total of 21 days. You will likely need to start oral contraceptive pills as an outpatient. Establezca atencin en la clnica de yovanny del vecindario en [facility] dentro de 1 semana de yue. Ellos servirn nilay vidales proveedor de atencin primaria. Ellos le ayudarn con rene derivacin al gineclogo. Tambin se sobrepasan cherelle resultados de ultrasonido. Llame al [phone] para programar rene jessica. Continuar tomando eli (sulfato ferroso) 325 mg al da. Adicionalmente, se le joana rene receta para Provera 10 mg dos veces al da. Nieves esto por un total de 21 lopez. Es probable que tenga que iniciar las pldoras anticonceptivas orales nilay un paciente ambulatorio. Referrals: [facility] at [facility] [Outside] Matthew Becerril MD [Staff Provider] -
[2019-03-13 13:33] LABS: ALB/GLOB RATIO 1.2 (1.0-2.1)
--- NOTE | 2019-03-13 16:59 | US ---
Date of service: 03/13/2019 HISTORY: heavy menstrual bleeding COMPARISON: None available. TECHNIQUE: Real-time transabdominal pelvic ultrasound was performed. In addition a transvaginal pelvic ultrasound was necessary to better depict pelvic anatomy. FINDINGS: UTERUS: Measures 10.9 x 5.1 x 7.2 cm. Anteverted. Heterogeneous uterine echotexture. 4.3 x 3.8 x 3.6 cm heterogeneous mass consistent with anterior subserosal fibroid. ENDOMETRIUM: Measures 1.0 cm in diameter. CERVIX: No cervical abnormality identified. RIGHT OVARY: Not visualized. LEFT OVARY: Measures 3.7 x 2.4 x 3.7 cm. Blood flow is demonstrated. 2.9 x 1.8 x 2.5 cm left ovarian follicle/cyst. FREE FLUID: Small pelvic free fluid noted. OTHER FINDINGS: None. IMPRESSION: Heterogeneous uterine echotexture. 4.3 x 3.8 x 3.6 cm heterogeneous mass consistent with anterior subserosal fibroid. The right ovary is not visualized. 2.9 x 1.8 x 2.5 cm left ovarian follicle/cyst. Small pelvic free fluid.
== END 2019-03-13 14:44 | disposition home or self-care (01) ==
LOC: C.ER 20:06 → C.9E 23:22 → C.6T 03-13 00:43
PROVIDERS: ADMIT Family Medicine; ATTEND Family Medicine
DX: N92.0 Excessive and frequent menstruation with regular cycle (principal); D72.829 Elevated white blood cell count, unspecified; D56.3 Thalassemia minor
CPT/HCPCS: 36415; 36430; 76830; 76856; 80053; 81001; 82607; 82728; 82746; 83036; 83540; 83550; 83735; 84100; 84702; 84703; 85025; 85610; 85730; 86850; 86900; 86920; 87086; C9113; G0378; P9051